=== PATIENT | female | born 1975 | race African-American/Black ===

== ENCOUNTER 2019-06-06 13:34 | Emergency (ER) | payer SELFPAY ==
[~2019-06-06] VITALS: Ht 180.3 cm; Wt 149.2 kg
--- NOTE | 2019-06-06 14:20 | NUR ---
PATIENT WAS MSE BY DR FRANCISCO IN ROOM 05A.
--- NOTE | 2019-06-06 14:34 | NUR ---
Patient discharged to home in stable conditon. Written and verbal after care instructions given. Patient verbalizes understanding of instructions.
[2019-06-06 14:35] VITALS: BP 131/71
== END 2019-06-06 14:37 | disposition home or self-care (01) ==
LOC: ER 13:34
DX: J44.9 Chronic obstructive pulmonary disease, unspecified (principal); Z88.8 Allergy status to other drugs, medicaments and biological substances
CPT/HCPCS: A4663